=== PATIENT | female | born 1975 | race African-American/Black ===

== ENCOUNTER 2023-06-09 12:00 | Emergency (ER) | payer OTHER ==
[2023-06-09 12:25] VITALS: BP 142/100; PULSE 85; RESP 16; TEMP 98; BMI 26.3
[2023-06-09] MEDS ORDERED: LIDOCAINE 5% TOPICAL PATCH TP ONE (12:55)
[2023-06-09] MEDS ORDERED: KETOROLAC TROMETHAMINE 30 MG/1 ML VIAL IM ONE (12:55)
[2023-06-09] MEDS ORDERED: METHOCARBAMOL 500 MG TABLET PO ONE (12:55)
[2023-06-09] MEDS ORDERED: METHOCARBAMOL 500 MG TABLET ONE (12:59)
[2023-06-09] MEDS ORDERED: KETOROLAC TROMETHAMINE 30 MG/1 ML VIAL ONE (13:00)
[2023-06-09] MEDS ORDERED: LIDOCAINE 5% TOPICAL PATCH ONE (13:00)
[2023-06-09] MEDS ORDERED: LIDOCAINE PATCH REMOVAL MC ONE (22:00)
== END 2023-06-09 13:15 | disposition home or self-care (01) ==
LOC: FER 12:00
PROC: 3E0233Z Introduction of Anti-inflammatory into Muscle, Percutaneous Approach (ICD-10-PCS; principal; 2023-06-09)
DX: M54.2 Cervicalgia (principal); M62.838 Other muscle spasm
CPT/HCPCS: 99284-25

== ENCOUNTER 2023-10-25 11:05 | Emergency (ER) | payer OTHER ==
[2023-10-25 11:17] VITALS: BP 153/100; PULSE 81; RESP 18; TEMP 98.9
[2023-10-25] MEDS ORDERED: ACETAMINOPHEN 325 MG TABLET (FP) PO ONE (13:01)
[2023-10-25] MEDS ORDERED: ACETAMINOPHEN 325 MG TABLET (FP) ONE (13:03)
== END 2023-10-25 13:07 | disposition home or self-care (01) ==
LOC: FER 11:05
DX: R05.9 Cough, unspecified (principal); R09.81 Nasal congestion; M79.10 Myalgia, unspecified site; R50.9 Fever, unspecified; J06.9 Acute upper respiratory infection, unspecified; U07.1 COVID-19
CPT/HCPCS: 0241U-QW; 99283-25

== ENCOUNTER 2024-01-24 11:22 | Emergency (ER) | payer OTHER ==
[2024-01-24 11:28] VITALS: PULSE 94; RESP 16; TEMP 98.6; BMI 28.5
[2024-01-24] MEDS ORDERED: METOCLOPRAMIDE HCL INJECTION 10 MG/2 ML VIAL ONE (11:44)
[2024-01-24] MEDS ORDERED: ACETAMINOPHEN INJECTION 100 ML IVPB ONE (11:44)
[2024-01-24] MEDS: METOCLOPRAMIDE HCL INJECTION 10 MG/2 ML VIAL IVPUSH ONE (12:05)
[2024-01-24] MEDS: SODIUM CHLORIDE 0.9% 500 ML INFUS.BAG IV ONE (12:05)
[2024-01-24 12:13] LABS: HEMATOCRIT 44.9 % (32.4-45.2); HEMOGLOBIN 14.7 G/dL (10.7-15.3); MCH 26.7 pg (25.7-33.7); MCHC 32.7 g/dl (32.0-36.0); MEAN CELL VOLUME 81.8 fl (80-96); MEAN PLT VOLUME 8.5 fl (7.5-11.1); PLATELET COUNT 320.3 10^3/uL (134-434); RBC 5.49 10^6/uL (3.60-5.2); RDW 15.7 % (11.6-15.6); WHITE BLOOD COUNT 10.3 10^3/uL (4.0-10.8)
[2024-01-24] MEDS: ACETAMINOPHEN 1000 MG/100 ML BAG IVPB ONE (12:16)
[2024-01-24 12:37] LABS: PLATELET ESTIMATE SLT INCREASE
[2024-01-24 12:38] LABS: ALBUMIN 4.6 g/dl (3.4-5.0); BILIRUBIN,TOTAL 0.4 mg/dl (0.2-1); CALCIUM 9.9 mg/dl (8.5-10.1); CREATININE 0.8 mg/dl (0.6-1.3); POTASSIUM 3.7 mmol/L (3.5-5.1); TOT PROT 7.1 g/dl (6.4-8.2)
[2024-01-24 12:57] VITALS: BP 133/98
== END 2024-01-24 13:05 | disposition home or self-care (01) ==
LOC: FER 11:22
PROC: 3E033NZ Introduction of Analgesics, Hypnotics, Sedatives into Peripheral Vein, Percutaneous Approach (ICD-10-PCS; principal; 2024-01-24)
PROC: 3E033GC Introduction of Other Therapeutic Substance into Peripheral Vein, Percutaneous Approach (ICD-10-PCS; 2024-01-24)
DX: G43.809 Other migraine, not intractable, without status migrainosus (principal); R11.2 Nausea with vomiting, unspecified
CPT/HCPCS: 36415; 70450-TC; 80053; 85027; 99284-25; J0131

== ENCOUNTER 2024-07-27 15:05 | Emergency (ER) | payer OTHER ==
[2024-07-27 15:17] VITALS: BP 137/89; PULSE 98; RESP 18; TEMP 98.6; BMI 28.8
[2024-07-27] MEDS ORDERED: KETOROLAC TROMETHAMINE 30 MG/1 ML VIAL ONE (16:02)
[2024-07-27] MEDS: KETOROLAC TROMETHAMINE 30 MG/1 ML VIAL IM ONE (16:10)
== END 2024-07-27 18:30 | disposition home or self-care (01) ==
LOC: FER 15:05
PROC: 3E0233Z Introduction of Anti-inflammatory into Muscle, Percutaneous Approach (ICD-10-PCS; principal; 2024-07-27)
DX: M25.561 Pain in right knee (principal); X50.1XXA Overexertion from prolonged static or awkward postures, initial encounter
CPT/HCPCS: 73560-TC-RT-FY; 99284-25